=== PATIENT | female | born 1960 ===

== ENCOUNTER 2019-01-27 10:28 | Emergency (ER) | payer SELFPAY | END 2019-01-27 10:52 | disposition left against medical advice (07) | LOC: UCEAST 10:28 | DX: Z53.21 Procedure and treatment not carried out due to patient leaving prior to being seen by health care provider (principal) ==

== ENCOUNTER → 2019-01-27 11:00 | Emergency (ER) | payer SELFPAY ==
[~2019-01-27 11:00] MED LIST: ALPRAZolam TAB* 0.25 MG PO ONE; Metoprolol Tartrate TAB* 25 MG PO ONE
--- NOTE | 2019-01-27 11:17 | ED ---
GI/ HPI - HPI Summary HPI Summary: A 58 y/o female, accompanied by her partner, presents to [facility] with a chief complaint of hematemesis the night of 01/26/19. She reports that she is currently in a job transition and claims that it has been very stressful for her. She reports that for months she has been waking up between 1:00 and 6:00 with abdominal spasms and nausea with no vomiting until recently and the night of 01/26/19 she vomited some blood. She claims that she thought that she was dying. She claims that typically during the day she would feel fine. At triage, she rated her pain as a 0/10 in severity. She believes that waking up at night is due to panic attacks where she would also feel tingling, and a squeezing pain in the back of her head. She denies headache, blurry vision, fever, chills , erythema (eyes), blurry vision, sore throat, chest pain, shortness of breath, cough, black stool, dysuria, hematuria, myalgia, edema, rash, headaches, lightheadedness and dizziness. She was given 5mg Lexapro the past few days by her partner and for the last couple days she has been sleeping better. She denies any black bowel movements. She reports that she has been having hot flashes. She claims that she tried to drink water, but that did not alleviate her pain. She denies a Hx of thyroid problems, HTN or MA. She reports that she does not have a PCP and is not taking any medication due to insurance. She reports that she has had anxiety since 2017. She claims that recently when she would measure her blood pressure at home when stressed it would be about 155/95 , but after taking a 30 minute walk with her dog her BP would go back down. Vital signs while in room HR: 96 bpm, O2 Sat: 96, BP: 196/118. - History of Current Complaint Chief Complaint: EDNauseaVomitDiarrh Time Seen by Provider: 01/27/19 11:15 Stated Complaint: VARIOUS SYMPTOMS PER PT Hx Obtained From: Patient, Family/Youth Nutritional Monitor Onset/Duration: Started Hours Ago Timing: Intermittent - 1 episode of hematemesis, Lasting Seconds Severity: Mild Current Severity: Mild Pain Intensity: 0 Location of Pain: Diffuse Pain Characteristics: Other: - spasm Associated Signs and Symptoms: Positive: Nausea, Vomiting, Abdominal Pain. Negative: Dizziness, Black Tarry Stool, Fever, Hematuria, Dysuria, Chills, Lightheadedness, Cough, Chest Pain Aggravating Factor(s): Nothing Alleviating Factor(s): Medication - Lexapro - Allergy/Home Medications Allergies/Adverse Reactions: Allergies Allergy/AdvReac Type Severity Reaction Status Date / Time No Known Allergies Allergy Verified 01/27/19 11:12 PMH/Surg Hx/FS Hx/Imm Hx Endocrine/Hematology History: Denies: Hx Thyroid Disease Cardiovascular History: Denies: Hx Congestive Heart Failure, Hx Hypertension, Hx Myocardial Infarction Psychiatric History: Reports: Hx Anxiety - Surgical History Surgery Procedure, Year, and Place: none Infectious Disease History: No Infectious Disease History: Denies: Traveled Outside the [place] in Last 30 Days - Family History Known Family History: Positive: Hypertension - mother - Social History Lives: With Family Alcohol Use: Daily Hx Substance Use: No Substance Use Type: Reports: None Hx Tobacco Use: Yes Smoking Status (MU): Former Smoker Review of Systems Positive: Other - positive: hot flashes. 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 Negative: Headache Positive: Anxious All Other Systems Reviewed And Are Negative: Yes Physical Exam - Summary Physical Exam Summary: Constitutional: Well-developed, Well-nourished, Alert. (-) Distressed Skin: Warm, Dry HENT: Normocephalic; Atraumatic Eyes: Conjunctiva normal Neck: Musculoskeletal ROM normal neck. (-) JVD, (-) Stridor, (-) Tracheal deviation Cardio: Rhythm regular, rate normal, Heart sounds normal; Intact distal pulses; The pedal pulses are 2+ and symmetric. Radial pulses are 2+ and symmetric. (-) Murmur Pulmonary/Chest wall: Effort normal. (-) Respiratory distress, (-) Wheezes, (-) Rales Abd: Soft, (-) tenderness, (-) Distension, (-) Guarding, (-) Rebound Musculoskeletal: (-) Edema Lymph: (-) Cervical adenopathy Neuro: Alert, Oriented x3 Psych: Anxious appearing Triage Information Reviewed: Yes Vital Signs On Initial Exam: Initial Vitals Temp Pulse Resp BP Pulse Ox 98.6 F 101 16 188/120 97 01/27/19 11:05 01/27/19 11:05 01/27/19 11:05 01/27/19 11:05 01/27/19 11:05 Vital Signs Reviewed: Yes Diagnostics - Vital Signs Vital Signs Temp Pulse Resp BP Pulse Ox 01/27/19 11:05 98.6 F 101 16 188/120 97 - Laboratory Result Diagrams: 01/27/19 11:23 01/27/19 11:23 Lab Statement: Any lab studies that have been ordered have been reviewed, and results considered in the medical decision making process. - EKG 11:27 Cardiac Rate: NL - 81 bpm EKG Rhythm: Sinus Rhythm EKG Comparison: No Significant Change Summary of EKG Findings: EKG at 11:27 revealed normal sinus rhythm at 81 bpm, no STEMI. GIGU Course/Dx - Course Course Of Treatment: A 58 y/o female, accompanied by her partner, presents to [facility] with a chief complaint of hematemesis the night of 01/26/19. She reports that she is currently in a job transition and claims that it has been very stressful for her. She reports that for months she has been waking up between 1: 00 and 6:00 with abdominal spasms and nausea with no vomiting until recently and the night of 01/26/19 she vomited some blood. She claims that she thought that she was dying. She claims that typically during the day she would feel fine. At triage, she rated her pain as a 0/10 in severity. She believes that waking up at night is due to panic attacks where she would also feel tingling, and a squeezing pain in the back of her head. She denies headache, blurry vision , fever, chills, erythema (eyes), blurry vision, sore throat, chest pain, shortness of breath, cough, black stool, dysuria, hematuria, myalgia, edema, rash, headaches, lightheadedness and dizziness. She was given 5mg Lexapro the past few days by her partner and for the last couple days she has been sleeping better. She denies any black bowel movements. She reports that she has been having hot flashes. She claims that she tried to drink water, but that did not alleviate her pain. She denies a Hx of thyroid problems, HTN or MA. She reports that she does not have a PCP and is not taking any medication due to insurance. She reports that she has had anxiety since 2017. She claims that recently when she would measure her blood pressure at home when stressed it would be about 155/95, but after taking a 30 minute walk with her dog her BP would go back down. The physical exam was unremarkable other than that the patient was anxious appearing. EKG at 11:27 revealed normal sinus rhythm at 81 bpm, no STEMI. Bloodwork and chemistries obtained. Free T4 high at 1.16 at 11: 23. Discussed case with mental health investment officer who reports that Dr. Bojorquez recommends follow up with mental health clinic, prescribing Ativan for 7 days and diagnosed with anxiety. The patient will be discharged with prescriptions for Lisinopril and Ativan. She is agreeable with this plan. - Diagnoses Provider Diagnoses: Anxiety, Uncontrolled hypertension - Physician Notifications Discussed Care Of Patient With: Mau Bojorquez Time Discussed With Above Provider: 16:28 Instructed by Provider To: Other - Discussed case with mental health investment officer who reports that Dr. Bojorquez recommends follow up with mental health clinic, prescribing Ativan for 7 days and diagnosed with anxiety. Discharge - Sign-Out/Discharge Documenting (check all that apply): Patient Departure - DC Patient Received Moderate/Deep Sedation with Procedure: No - Discharge Plan Condition: Stable Disposition: HOME Prescriptions: Lisinopril TAB* [Prinivil TAB 10 MG*] 10 mg PO DAILY #30 tab LORazepam TAB(*) [Ativan 1 MG TAB (*)] 1 mg PO Q8H PRN #21 tab MDD 3 PRN Reason: Anxiety Patient Education Materials: Hypertension (ED) Referrals: [facility] [Other] (Please call Dulce Maria Maldonado at [phone] or Estefany Najera at [phone] to begin the process of getting insurance ) [facility] [Outside] Additional Instructions: RETURN TO THE EMERGENCY DEPARTMENT FOR CHANGING OR WORSENING SYMPTOMS - Billing Disposition and Condition Condition: STABLE Disposition: Home - Attestation Statements Document Initiated by Scribe: Yes Documenting Scribe: Chao Johnson Provider For Whom Scribe is Documenting (Include Credential): Adonay Renee MD Scribe Attestation: I, Chao Johnson, scribed for Adonay Renee MD on 01/27/19 at 2231. Scribe Documentation Reviewed: Yes Provider Attestation: The documentation as recorded by the scribe, Chao Johnson accurately reflects the service I personally performed and the decisions made by me, Adonay Renee MD Status of Scribe Document: Viewed
[2019-01-27 11:30] LABS: ABS Basophils 0 10^3/ul (0-0.2); ABS Eosinophils 0 10^3/ul (0-0.6); ABS Lymphocytes 1.6 10^3/ul (1.0-4.8); ABS Monocytes 0.8 10^3/ul (0-0.8); ABS Neutrophils 5.1 10^3/ul (1.5-7.7); ABS Nucleated RBC 0 10^3/ul; Eosinophil % 0.1 %; Hematocrit 43 % (35-47); Hemoglobin 14.7 g/dl (12.0-16.0); Lymphocyte % 21.8 %; Mean Corpuscular HGB Conc 34 g/dl (31-36); Mean Corpuscular Hemoglobin 31 pg (27-31); Mean Corpuscular Volume 93 fL (80-97); Mean Platelet Volume 8.6 fL (7.4-10.4); Nucleated Red Blood Cells % 0; Platelet Count 233 10^3/ul (150-450); Red Blood Count 4.69 10^6/ul (4.00-5.40); Red Cell Distribution Width 13 % (10.5-15); White Blood Count 7.6 10^3/ul (3.5-10.8)
[2019-01-27 11:51] LABS: Albumin 4.8 g/dL (3.2-5.2); Albumin/Globulin Ratio 1.6 (1-3); EGFR African American 114.5 (>60); EGFR Non-African American 94.7 (>60); Potassium 3.7 mmol/L (3.5-5.0); Total Bilirubin 1.4 mg/dL (0.2-1.0); Total Protein 7.8 g/dL (6.4-8.9)
[2019-01-27 12:43] LABS: TSH (Thyroid Stimulating Horm) 1.6 mcIU/mL (0.34-5.60)
[2019-01-27 12:45] LABS: Free T4 1.16 ng/dL (0.61-1.12)
[2019-01-27 16:48] VITALS: BP 156/94
== END | disposition home or self-care (01) ==
LOC: ED 11:00
DX: F41.9 Anxiety disorder, unspecified (principal); I10 Essential (primary) hypertension; Z87.891 Personal history of nicotine dependence
CPT/HCPCS: 36415; 80053; 83605; 84439; 84443; 84484; 85025; 93005; 99284; A9270-GY